=== PATIENT | male | born 1970 | race African-American/Black ===

== ENCOUNTER 2020-10-14 08:24 | Emergency (ER) | payer OTHER ==
[~2020-10-14] VITALS: Ht 193 cm; Wt 118.2 kg
[~2020-10-14 08:24] MED LIST: COREG 3.1253.125 MG PO; FUROSEMIDE40 MG PO; HYDROCODON-ACE1 EA10 PO; HYDROCODON-ACE1 EAC7 PO; IBUPROFEN800 MG PO; K-DUR20 MEQ PO; KEPPRA750 MG PO; LIPITOR40 MG PO; NALTREXONE HCL50 MG PO; NORVASC5 MG PO
[2020-10-14 08:29] VITALS: BP 139/88; Ht 193 cm; Wt 118.2 kg
[2020-10-14 09:04] LABS: BASOPHILS 0.4 % (0-2); EOSINOPHILS 6.9 % (0-7); HEMATOCRIT 41.2 % (42.0-54.0); HEMOGLOBIN 13.3 g/dL (13.5-17.5); IMMATURE GRANULOCYTES 0.2 % (0-5); LYMPHOCYTE ABS# 2.85 10x3/uL (1.32-3.57); LYMPHOCYTES 35.5 % (15-50); MCH 27.7 pg (26.0-34.0); MCHC 32.3 g/dL (31.0-37.0); MCV 85.7 fL (80.0-100.0); MEAN PLATELET VOLUME 10.2 fL (7.4-10.4); MONOCYTES 7.5 % (2-11); NEUTROPHIL ABS# 3.97 10x3/uL (1.78-5.38); NEUTROPHILS 49.5 % (40-80); PLATELET COUNT 199 10x3/uL (130-400); RBC 4.81 10x6/uL (4.20-6.10); RDW 13.2 % (11.5-14.5)
[2020-10-14 09:17] LABS: INR 1.17 (0.85-1.17); PROTIME 13.9 SECONDS (11.6-15.0)
[2020-10-14 09:20] LABS: CALC OSMOLALITY 281 mosm/kg (275-300); CALCIUM 8.8 mg/dL (8.5-10.1); CARBON DIOXIDE 27.8 mmol/L (21.0-32.0); CHLORIDE - SERUM 105 mmol/L (98-107); CREATININE - SERUM 0.9 mg/dL (0.6-1.3); GLUCOSE 93 mg/dL (74-106); POTASSIUM - SERUM 3.8 mmol/L (3.5-5.1); SODIUM 141 mmol/L (136-145); UREA NITROGEN 14 mg/dL (7-18); eGFR NON AFRICAN AMERICAN > 90 mL/min (90-120)
[2020-10-14 09:40] LABS: ALBUMIN 3.6 g/dL (3.4-5.0); ALKALINE PHOSPHATASE 123 U/L (30-120); ALT (SGPT) 24 U/L (10-68); BILIRUBIN - TOTAL 1.04 mg/dL (0.2-1.3); CKMB 5.9 U/L (0.0-3.6); CREATINE KINASE 258 UL (21-232); MAGNESIUM - SERUM 1.7 mg/dL (1.8-2.4); PROTEIN - SERUM 7.3 g/dL (6.4-8.2); THYROID STIMULATING HORMONE 0.77 uIU/mL (0.36-3.74); TROPONIN-I 0.023 ng/mL (0.000-0.060)
[2020-10-14 10:03] LABS: APTT 28.1 SECONDS (22.8-39.4)
[2020-10-14] MEDS ORDERED: VALIUM5 MG PO (10:50)
== END 2020-10-14 11:19 | disposition home or self-care (01) ==
LOC: D.ER 08:24
PROVIDERS: Student in an Organized Health Care Education/Training Program
DX: R42 Dizziness and giddiness (principal); R00.1 Bradycardia, unspecified; I10 Essential (primary) hypertension; J45.909 Unspecified asthma, uncomplicated; R51.9 Headache, unspecified

== ENCOUNTER 2020-10-25 11:22 | Emergency (ER) | payer OTHER ==
[~2020-10-25] VITALS: Ht 193 cm; Wt 118.2 kg
[~2020-10-25 11:22] MED LIST changes: +VALIUM5 MG PO
[2020-10-25 11:25] VITALS: Ht 193 cm; Wt 118.2 kg
[2020-10-25] MEDS ORDERED: MECLIZINE HCL25 MG PO (12:41)
[2020-10-25] MEDS ORDERED: FLUTICASONE PRO16 GM NASAL (12:45)
[2020-10-25] MEDS ORDERED: CLEOCIN HCL300 MG PO (12:45)
== END 2020-10-25 13:17 | disposition home or self-care (01) ==
LOC: D.ER 11:22
DX: H81.10 Benign paroxysmal vertigo, unspecified ear (principal); J32.9 Chronic sinusitis, unspecified; I10 Essential (primary) hypertension; J45.909 Unspecified asthma, uncomplicated

== ENCOUNTER 2020-10-25 13:43 | Emergency (ER) | payer OTHER ==
[~2020-10-25] VITALS: Ht 193 cm; Wt 118.2 kg
[~2020-10-25 13:43] MED LIST changes: +CLEOCIN HCL300 MG PO; +FLUTICASONE PRO16 GM NASAL; +MECLIZINE HCL25 MG PO
[2020-10-25 13:48] VITALS: BP 102/75; Ht 193 cm; Wt 118.2 kg
== END 2020-10-25 14:57 | disposition home or self-care (01) ==
LOC: D.ER 13:43
DX: R42 Dizziness and giddiness (principal); J32.9 Chronic sinusitis, unspecified; I10 Essential (primary) hypertension

== ENCOUNTER 2020-10-31 07:01 | Observation (INO) | payer OTHER ==
[2020-10-31] VITALS (9 sets, daily range): BP systolic 120–150; BP diastolic 76–94; Ht 193 cm; Wt 98.2 kg
[~2020-10-31] VITALS: Ht 193 cm; Wt 98.2 kg
--- NOTE | ~2020-10-31 | ST ---
PATIENT:LATISHA URIAS MEDICAL RECORD: [id number] SEX: M LOCATION:D. D.211 ORDER #: ADMISSION DATE: 10/31/20 AGE OF PATIENT: 50 REFERRING PHYSICIAN: INTERPRETING PHYSICIAN: JERAMIE RUSSO MD DATE OF SERVICE: 10/31/2020 PROCEDURE: Nuclear stress test. Gated is normal. Normal wall motion. Normal wall thickening. Calculated EF 62%. SPECT IMAGING: SPECT imaging was performed. 1. SHORT AXIS VIEW: Short axis view shows good uptake along the anterior wall, lateral wall and inferior wall. 2. HORIZONTAL AXIS: Horizontal axis confirms good uptake along the anterior wall and inferior wall. 3. VERTICAL AXIS: Vertical axis shows good uptake along the lateral wall and septum. FINAL IMPRESSION: 1. Normal gated. Normal wall motion. Normal ejection fraction at 62%. 2. Normal SPECT imaging. The scan is felt to be low risk for ongoing myocardial ischemia or previous myocardial infarction. LV function remains normal. Continue medical management and risk factor modifications recommended. TRANSINT:[id number] Voice Confirmation ID: [id number] DOCUMENT ID: [id number] JERAMIE RUSSO MD CC: [id number] DICTATION DATE: 11/01/20 1440 ROLL CLAMP OPERATOR: 11/01/20 1514 ADM IN [facility] [address] [place] [address]
[2020-10-31 07:50] LABS: BASOPHILS 0.5 % (0-2); EOSINOPHILS 10.5 % (0-7); HEMOGLOBIN 12.7 g/dL (13.5-17.5); IMMATURE GRANULOCYTES 0.2 % (0-5); LYMPHOCYTE ABS# 2.95 10x3/uL (1.32-3.57); LYMPHOCYTES 49.2 % (15-50); MCH 27.7 pg (26.0-34.0); MCHC 32.6 g/dL (31.0-37.0); MCV 85.2 fL (80.0-100.0); MEAN PLATELET VOLUME 10.1 fL (7.4-10.4); MONOCYTES 7.2 % (2-11); NEUTROPHIL ABS# 1.95 10x3/uL (1.78-5.38); NEUTROPHILS 32.4 % (40-80); RBC 4.58 10x6/uL (4.20-6.10); RDW 13.1 % (11.5-14.5)
[2020-10-31 07:54] LABS: APTT 30.6 SECONDS (22.8-39.4); CALC OSMOLALITY 273 mosm/kg (275-300); CALCIUM 8.4 mg/dL (8.5-10.1); CARBON DIOXIDE 27.8 mmol/L (21.0-32.0); CHLORIDE - SERUM 105 mmol/L (98-107); CREATININE - SERUM 0.9 mg/dL (0.6-1.3); GLUCOSE 99 mg/dL (74-106); INR 1.21 (0.85-1.17); PLATELET COUNT 240 10x3/uL (130-400); POTASSIUM - SERUM 3.9 mmol/L (3.5-5.1); PROTIME 14.2 SECONDS (11.6-15.0); SODIUM 137 mmol/L (136-145); UREA NITROGEN 13 mg/dL (7-18); eGFR NON AFRICAN AMERICAN > 90 mL/min (90-120)
[2020-10-31 08:09] LABS: ALBUMIN 3.3 g/dL (3.4-5.0); ALKALINE PHOSPHATASE 110 U/L (30-120); ALT (SGPT) 24 U/L (10-68); BILIRUBIN - TOTAL 0.94 mg/dL (0.2-1.3); C-REACTIVE PROTEIN < 0.2 mg/dL (0.0-0.9); MAGNESIUM - SERUM 1.8 mg/dL (1.8-2.4); PRO BNP 198 pg/mL (0-125); THYROID STIMULATING HORMONE 0.85 uIU/mL (0.36-3.74); TROPONIN-I 0.027 ng/mL (0.000-0.060)
--- NOTE | 2020-10-31 11:38 | NUR ---
RECEIVED PT TO ROOM 2118 VIA WHEELCHAIR, PT ABLE TO TRANSFER FROM WHEELCHAIR TO BED X1 ASSIST SINCE PT IS DIZZY. PT IS A/O X4, RESP EVEN AND NONLABORED ON RA. LT WRIST INFUSING NS AT 50CC/HR. ORIENTED PT TO ROOM AND CALL LIGHT, WILL ASSESS PT AND START PLAN OF CARE.
--- NOTE | 2020-10-31 20:16 | NUR ---
RECIEVED UP IN BED WITH EYES OPEN AND TV ON. ALERT AND ORIENTED X4. UP WITH ASSIST D/T DIZZINESS. REQUESTED ICE CREAM. ICE CREAM GIVEN AND DENIES ANY OTHER NEEDS AT THIS TIME.
[2020-11-01] VITALS: BP 132/78
[2020-11-01 04:00] VITALS: BP 134/81
--- NOTE | 2020-11-01 07:51 | HP ---
PATIENT: LATISHA URIAS MEDICAL RECORD: [id number] ACCOUNT: [id number] LOCATION:[address] : 71 ADMISSION DATE: 10/31/20 PCP: LARRY WHIPPLE MD HISTORY AND PHYSICAL EXAMINATION REASON FOR ADMISSION: Dizziness with near syncope. HISTORY OF PRESENT ILLNESS: The patient is a 50-year-old -[place]ish male with a previous history of coronary artery disease post-2 stents placed in [place] sometime back. He had been in the Emergency Room here in March and again end of September and last week for episodes of dizziness. He had CT scans, the end of September and middle of October showing bilateral maxillary and ethmoid sinus disease with smaller fluid levels in the maxillary sinuses. He was treated with antibiotics, but said he has gotten progressively worse. He was driving to [place] to go to work today and got so dizzy he had to turnaround. He said it feels like his vision is fading out and he feels lightheaded. Additionally, describes quick head movements or supine position making the room spin. He has had no nausea or vomiting. Denies headache. A CT scan of his head sequentially as mentioned above did not show any supratentorial disease. PAST MEDICAL HISTORY: CAD post-2 stents placed, sinusitis, history of seizure disorder, hyperlipidemia, remote history of asthma, pneumonia, history of depression, chronic back pain post-fracture, left ankle fracture, history of gastritis, right inguinal hernia post-repair. PAST SURGICAL HISTORY: Coronary stents placed times 2, right inguinal hernia repair with mesh. FAMILY HISTORY: Positive for parents with history of cancer, type unknown. Sibling with COPD. SOCIAL HISTORY: He does not use alcohol or tobacco. He says currently he works with [employer] in [place]. CURRENT MEDICATIONS: Clindamycin 300 mg p.o. t.i.d., amlodipine 5 mg a day, atorvastatin 40 mg at bedtime, Keppra 750 mg p.o. b.i.d., naltrexone 50 mg p.o. daily, Lasix 40 mg p.o. every morning, K-Dur 20 mEq p.o. daily, meclizine 25 mg t.i.d. p.r.n. dizziness. ALLERGIES: PENICILLIN AND SULFA. REVIEW OF SYSTEMS: GENERAL: He has not been fatigued. HEENT: He has had recurrent episodes since March with dizziness whether he was sitting or standing. Denies headache. No recent seizures. No recent visual changes. He has had some sinus congestion and right otalgia. Oropharynx, no lip or tongue abnormalities. RESPIRATORY: Denies shortness of breath or cough. CARDIOVASCULAR: Denies exertional chest pain, claudication, edema or palpitations. GASTROINTESTINAL: No nausea or vomiting, change in stools. GENITOURINARY: Nocturia once nightly. No dysuria. MUSCULOSKELETAL: Has chronic lumbago and recent sciatica. ENDOCRINE: Denies polyuria, polydipsia, heat or cold intolerance. HISTORY AND PHYSICAL [id number] LATISHA URIAS NEUROLOGIC: No history of stroke, TIA or vascular headaches. He has had a history of seizures, controlled on Keppra. He has been very dizzy as mentioned above, one type is positional and the other is not. INTEGUMENT: No rash or itching. PHYSICAL EXAMINATION: VITAL SIGNS: Pulse is 41 to 44 and regular, respirations are 16, temperature is 97 degrees Fahrenheit, blood pressure 120/76 with a sat of 99% on room air. GENERAL: The patient is currently supine in bed in no acute distress. He is alert and oriented and gives a good history. HEENT: Eyes are clear. Nose shows boggy turbinates bilaterally. Tenderness over both maxillary sinuses are unremarkable. Right TM retracted, left unremarkable. NECK: Supple, without bruits. CHEST: Clear. HEART: Regular rate and rhythm. ABDOMEN: Soft, nontender. No organomegaly. GENITOURINARY: No obvious hernias noted. RECTAL: Deferred. EXTREMITIES: No CC&E. NEUROLOGICAL: Oriented to person, place and time. Cranial nerves are intact. Gait somewhat unsteady when he stands. Closes his eyes. He has instability. Sensory is intact bilaterally. LABORATORY AND DIAGNOSTIC DATA: White count of 6000, H&H of 12.7 and 39.0 with a normal platelet count. Chemistry is unremarkable. Glucose is 99, magnesium 1.8. Liver functions are normal. ProBNP is 198. TSH 0.85. Toxicology shows Keppra level of 10. INR of 1.21. Chest x-ray shows no acute cardiopulmonary disease. Recent CT scans times 2 in the last month showed bilateral maxillary and ethmoid sinus disease with air-fluid levels. ASSESSMENT: 1. Bjwwf-la-ecjxngu sinusitis. 2. Bradycardia with T-wave inversion laterally on EKG. 3. History of coronary artery disease, asymptomatic currently post percutaneous transluminal coronary angioplasty times 2. 4. Bradycardia. 5. Hypertension. 6. Hyperlipidemia. 7. Seizure disorder, vertigo? PLAN: We will continue Antivert t.i.d. Cardiology has been consulted. He states he has been off of Coreg for 7 days and still bradycardic. We placed on telemetry to rule out sick sinus syndrome. TRANSINT:[id number] Voice Confirmation ID: [id number] DOCUMENT ID: [id number] HISTORY AND PHYSICAL [id number] LATISHA URIAS TIMOTHY MD at 0751 CC: [id number] DICTATION DATE: 10/31/20 1300 TUFTING SUPERVISOR: 10/31/20 1649 ADM IN [facility] [address] [place] [address]
--- NOTE | 2020-11-01 14:07 | EC ---
PATIENT:LATISHA URIAS DATE OF SERVICE: 10/31/20 SEX: M MEDICAL RECORD: [id number] DATE OF : 72 LOCATION:D.M2 D.211 AGE OF PATIENT: 50 ADMISSION DATE: 10/31/20 REFERRING PHYSICIAN: INTERPRETING PHYSICIAN: JERAMIE RUSSO MD ECHOCARDIOGRAM REPORT ECHO CHARGES 4 ECHO COMPLETE Date: 10/31/20 CLINICAL DIAGNOSIS: BRADYCARDIA, NEAR SYNCOPE, HX:CAD ECHOCARDIOGRAPHIC MEASUREMENTS (adult normal given) AC root (d.<3.7cm) 3.5 cm LV Septum d (<1.2 cm> 0.8 cm Valve Excursion 2.0 cm LV Septum (systole) 1.4 cm Left Atria (s.<4.0cm> 4.6 cm LVPW d(<1.2cm) 0.9 cm RV (d.<2.3cm) 2.8 cm LVPW (sytole) 1.3 cm LV diastole(<5.6CM) 6.4 cm MV E-F(>70mm/sec) cm LV systole 4.7 cm LVOT Diameter 1.8 cm MV exc.(>10mm) 1.6 cm Est.ejection fraction (50-75%) % DOPPLER: LVIT cm/sec A 67 cm/sec E 74 cm/sec LA cm/sec RVSP 17 mmHg LVOT 117 cm/sec AOP1/2T m/s Asc. Ao 109 cm/sec RVOT 41 cm/sec RA cm/sec PA 57 cm/sec AV Gradient Peak 4.7 mmHg AV Mean 2.9 mmHg AV Area 2.7 cm MV Gradient Peak 4.0 mmHg MV Mean 1.4 mmHg MV Area cm COMMENTS: Film Library Clerk: Jaylen NOLEN Burlapper: 3 Dr. Montes TAPE# Pericardial Effusion N DATE OF SERVICE: Adequate 2D, color flow imaging, spectral Doppler, and M-Mode. No LVH. LV internal dimensions are normal. Wall motion normal. EF greater than or equal to 55%. Aortic valve is tricuspid. No evidence of stenosis by Doppler interrogation. Left atrium is mildly dilated at 4.6 cm. Mitral valve shows no prolapse. Mild MR. Right-sided chambers are grossly normal. Trace TR. ECHOCARDIOGRAM REPORT [id number] LATISHA URIAS TRANSINT:[id number] Voice Confirmation ID: [id number] DOCUMENT ID: [id number] JERAMIE RUSSO MD at 1407 CC: [id number] DICTATION DATE: 10/31/20 164 GIFT BASKET PACKER: 10/31/20 2254 ADM IN [facility] [address] [place] [id number]
--- NOTE | 2020-11-01 19:13 | NUR ---
RECIEVED UP IN BED WITH EYES OPEN AND TV ON. ALERT AND ORIENTED X4. UP AD RUTH. DENIES ANY NEEDS AT THIS TIME.
[2020-11-01 21:00] VITALS: BP 136/78
[2020-11-02] VITALS: BP 126/70
[2020-11-02 04:00] VITALS: BP 122/83
--- NOTE | 2020-11-02 07:15 | NUR ---
RECEIVE SHIFT REPORT. RESTING IN BED. DENIES ANY NEEDS AT THIS TIME. DISCHARGING TODAY. WILL CONTINUE POC AND SAFETY PRECAUTIONS.
[2020-11-02] MEDS ORDERED: MECLIZINE HCL25 MG PO (07:29)
[2020-11-02] MEDS ORDERED: CLARITHROMYCIN500 M1 PO (07:30)
[2020-11-02 08:00] VITALS: BP 128/82
--- NOTE | 2020-11-02 09:54 | NUR ---
D/C LEFT HAND IV, TIP INTACT. DISCHARGE INSTRUCTIONS GIVEN VERBALLY AND HANDOUTS PROVIDED. DRIVING SELF. NO SEDATION MEDS GIVEN. WILL TAKE DOWN VIA WHEELCHAIR.
== END 2020-11-02 10:06 | disposition home or self-care (01) ==
LOC: D.ER 07:01 → OBSVTIME 08:10 → D.M2 08:10
PROVIDERS: Family Medicine; ADMIT Family Medicine; ATTEND Family Medicine
DX: H81.10 Benign paroxysmal vertigo, unspecified ear (principal); R00.1 Bradycardia, unspecified; I25.10 Atherosclerotic heart disease of native coronary artery without angina pectoris; I10 Essential (primary) hypertension; G40.909 Epilepsy, unspecified, not intractable, without status epilepticus; R55 Syncope and collapse; J01.90 Acute sinusitis, unspecified; E78.5 Hyperlipidemia, unspecified

== ENCOUNTER 2020-11-20 13:31 | Emergency (ER) | payer OTHER ==
[~2020-11-20] VITALS: Ht 193 cm; Wt 99.1 kg
[~2020-11-20 13:31] MED LIST changes: +CLARITHROMYCIN500 M1 PO
[2020-11-20 13:40] VITALS: Ht 193 cm; Wt 99.1 kg
[2020-11-20] MEDS ORDERED: ALBUTEROL SULF8.5 GM INH (13:46)
[2020-11-20] MEDS ORDERED: VITAMIN D21250 MC1 PO (13:46)
[2020-11-20 14:20] LABS: BASOPHILS 0.7 % (0-2); EOSINOPHILS 6.9 % (0-7); HEMATOCRIT 40.1 % (42.0-54.0); HEMOGLOBIN 13.2 g/dL (13.5-17.5); LYMPHOCYTES 39.8 % (15-50); MCH 27.9 pg (26.0-34.0); MCHC 32.8 g/dL (31.0-37.0); MCV 84.9 fL (80.0-100.0); MEAN PLATELET VOLUME 8.2 fL (7.4-10.4); MONOCYTES 6.7 % (2-11); NEUTROPHILS 45.9 % (40-80); PLATELET COUNT 194 10x3/uL (130-400); RBC 4.72 10x6/uL (4.20-6.10); RDW 13.7 % (11.5-14.5); WBC 5.3 10x3/uL (4.8-10.8)
[2020-11-20 14:21] LABS: BILIRUBIN NEGATIVE (NEGATIVE); KETONE NEGATIVE (NEGATIVE); NITRITE NEGATIVE (NEGATIVE); UROBILINOGEN 4 mg/dL (< 2)
[2020-11-20 14:22] LABS: BACTERIA FEW HPF (NONE SEEN); WHITE CELLS - URINE 2 HPF (0-1)
[2020-11-20 14:26] LABS: CALC OSMOLALITY 281 mosm/kg (275-300); CALCIUM 8.3 mg/dL (8.5-10.1); CARBON DIOXIDE 26.6 mmol/L (21.0-32.0); CHLORIDE - SERUM 106 mmol/L (98-107); GLUCOSE 125 mg/dL (74-106); POTASSIUM - SERUM 3.8 mmol/L (3.5-5.1); SODIUM 140 mmol/L (136-145); UREA NITROGEN 18 mg/dL (7-18); eGFR NON AFRICAN AMERICAN 84 mL/min (90-120)
[2020-11-20 14:36] LABS: ALBUMIN 3.8 g/dL (3.4-5.0); ALKALINE PHOSPHATASE 139 U/L (30-120); ALT (SGPT) 25 U/L (10-68); AMYLASE - SERUM 119 U/L (25-115); BILIRUBIN - TOTAL 0.62 mg/dL (0.2-1.3); LIPASE 107 U/L (73-393); PROTEIN - SERUM 7.6 g/dL (6.4-8.2)
[2020-11-20 14:37] LABS: TROPONIN-I < 0.017 ng/mL (0.000-0.060)
[2020-11-20] MEDS ORDERED: PROTONIX40 MG PO (16:52)
[2020-11-20 17:25] VITALS: BP 118/77
== END 2020-11-20 17:26 | disposition home or self-care (01) ==
LOC: D.ER 13:31
PROVIDERS: Family Medicine
DX: K29.70 Gastritis, unspecified, without bleeding (principal); R10.9 Unspecified abdominal pain; I10 Essential (primary) hypertension